=== PATIENT | male | born 1970 | race Caucasian/White ===

== ENCOUNTER → 2017-10-27 | Outpatient (CLI) | payer OTHER | LOC: FIMAGING 14:01 | PROVIDERS: ATTEND Nurse Practitioner Adult Health | DX: T82.110A Breakdown (mechanical) of cardiac electrode, initial encounter (principal) ==

== ENCOUNTER 2018-01-10 11:05 | Observation (INO) | payer OTHER ==
[2018-01-10] MEDS ORDERED: DIAZEPAM 5 MG TAB PO ONE (11:08)
[2018-01-10] MEDS ORDERED: diphenhydrAMINE 25 MG CAP PO ONE (11:08)
[2018-01-10] MEDS ORDERED: NS 1,000 ML IV ONE (11:08)
[2018-01-10] MEDS ORDERED: ceFAZolin 2 GM/DEXTROSE 100 ML IV ONE (11:08)
[2018-01-10] MEDS ORDERED: BACITRACIN IRRIGATION/NS 50,000 UNITS/1,000 ML BTL IRR ONE (11:08)
[2018-01-10] MEDS ORDERED: DEXAMETHASONE 4 MG/ML VIAL ONE (11:47)
[2018-01-10] MEDS ORDERED: PROPOFOL 200 MG/20 ML VIAL ONE (11:47)
[2018-01-10] MEDS ORDERED: fentaNYL 100 MCG/2 ML INJ ONE (11:47)
[2018-01-10] MEDS ORDERED: LIDOCAINE 2% 5 ML SDV ONE (11:47)
[2018-01-10] MEDS ORDERED: ONDANSETRON 4 MG/2 ML VIAL ONE (11:47)
[2018-01-10] MEDS ORDERED: KETOROLAC 30 MG/1 ML SDV ONE (11:47)
[2018-01-10 11:50] LABS: PLATELET COUNT 176 10^3/uL (150-400)
[2018-01-10 11:59] LABS: INR 1.08 (0.83-1.16); PROTIME(PATIENT) 14.2 SEC (12.0-15.0)
[2018-01-10] MEDS ORDERED: MIDAZOLAM 2 MG/2 ML VIAL IVP ONE (12:00)
--- NOTE | 2018-01-10 12:00 | PDANEPAE ---
ANE History of Present Illness pacer lead, gen change ANE Past Medical History - Cardiovascular History Hx Hypertension: No Hx Arrhythmias: No Hx Chest Pain: No Hx Coronary Artery / Peripheral Vascular Disease: No Hx CHF / Valvular Disease: No Hx Palpitations: No Cardiovascular History Comment: pacemaker - Pulmonary History Hx COPD: No Hx Asthma/Reactive Airway Disease: No Hx Recent Upper Respiratory Infection: No Hx Oxygen in Use at Home: No Hx Sleep Apnea: No - Neurologic History Hx Cerebrovascular Accident: No Hx Seizures: No Hx Dementia: No - Endocrine History Hx Diabetes: No Hypothyroid: No Hyperthyroid: No Obesity: no - Renal History Hx Renal Disorders: No - Liver History Hx Hepatic Disorders: No ANE Review of Systems Review of Systems: - Exercise capacity Exercise capacity: >=4 METS ANE Patient History - Allergies Allergies/Adverse Reactions: No Known Allergies Allergy (Verified 01/03/18 11:17) - Home Medications Home medications: home medication list seen and reviewed Home Medications: NK [No Known Home Meds] 01/03/18 [Last Taken Unknown] - Anes Hx Anes Hx: no prior problems - Smoking Hx Smoking Status: Never smoked ANE Labs/Vital Signs - Labs Result Diagrams: 01/10/18 11:35 01/10/18 11:35 - Vital Signs Height: 187.96 cm Weight: 97.522 kg ANE Physical Exam - Airway Mallampati Score: Class 2 Mouth exam: normal dental/mouth exam, nunez - Pulmonary Pulmonary: no respiratory distress - Cardiovascular Cardiovascular: regular rate and rhythym - ASA Status ASA Status: II ANE Anesthesia Plan Anesthesia Plan: GA w LMA
[2018-01-10] MEDS ORDERED: BUPIVACAINE 0.75% 10 ML SDV ONE ×2 (12:07→12:42)
[2018-01-10] MEDS ORDERED: IOPAMIDOL (ISOVUE-300) 100 ML BTL ONE (12:07)
[2018-01-10] MEDS ORDERED: LIDOCAINE 1% 300 MG/30 ML SDV ONE ×2 (12:07→12:42)
[2018-01-10] MEDS ORDERED: MIDAZOLAM 2 MG/2 ML VIAL ONE (12:10)
--- NOTE | 2018-01-10 12:10 | PDGENHP ---
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 V lead with noise. Plan: 1. New V lead. 2. Temporary pacemaker. 3. Keloid excision. 4. Possible submuscular pacemaker placement
--- NOTE | 2018-01-10 12:18 | CPEKG ---
Test Reason : OPEN Blood Pressure : / mmHG Vent. Rate : 061 BPM Atrial Rate : 063 BPM P-R Int : 188 ms QRS Dur : 162 ms QT Int : 486 ms P-R-T Axes : 033 -63 107 degrees QTc Int : 490 ms Atrial-sensed ventricular-paced rhythm Confirmed by Florencio Sharpe ([id number]) on 01/10/2018 12:18:00 PM Referred By: Confirmed By:Florencio Sharpe
[2018-01-10] MEDS ORDERED: fentaNYL 100 MCG/2 ML INJ IVP PRN (14:42)
[2018-01-10] MEDS ORDERED: ALBUTEROL 3 ML DEYVIAL IH PRN (14:42)
[2018-01-10] MEDS ORDERED: HYDROCODONE/APAP 5/325 TAB PO PRN (14:42)
[2018-01-10] MEDS ORDERED: LR 500 ML IV PRN (14:42)
[2018-01-10] MEDS ORDERED: NALOXONE HCL 0.4 MG/ML INJ IVP PRN (14:42)
--- NOTE | 2018-01-10 14:42 | POSTANESTH ---
Post Anesthetic Evaluation Cardiovascular Status: Normal, Stable Respiratory Status: Normal, Stable Level of Consciousness/Mental Status: Can Participate in Eval Pain Control: Adequate, Prn Tx Ordered Nausea/Vomiting Control: Adequate, Prn Tx Ordered Complications Possibly Related to Anesthesia: None Noted
--- NOTE | 2018-01-10 15:54 | EPPROC ---
Electrophysiology Procedure Note: PROCEDURE PERFORMED: 1. New V lead 2. Generator change 3. Pocket revision 4. Scar revision for keloid 5. Temporary pacemaker 6. Subclavian vein angiography 7. Fluoroscopy INDICATION: Complete AV block Congentially corrected transposition of great vessels PROCEDURE NOTE: Patient presented to the cardiac catheterization laboratory in a fasting, post absorptive state . Dr. Cuenca administered LMA. The left infraclavicular area was prepped and draped in the usual sterile fashion. Lidocaine plus bupivacaine was used for local anesthesia. Patient has no escape rhythm. Temporary pacemaker was placed via R femoral vein. SubQ suture was placed and temp wire and sheath were removed at end of case. Left subclavian venography was performed by injection of iodinated contrast into the left antecubital vein. This was done to assure patency of the vein. Using a combination of blunt and sharp dissection and electrocautery, the dissection was carried down to the prepectoral fascia. The existing pocket was opened, it was superficial and therefore leads were dissected free and dissection carried down to prepectoral fascia. All bleeding was controlled with electrocautery. The pocket was packed with gauze soaked in antibiotic solution. Fluoroscopy was utilized during the entire procedure for venous access and placement of the leads. Using a direct stick technique the left extrathoracic axillary vein was accessed with 1 stick using the modified Seldinger technique. Placement of the guidewire into the venous system was confirmed by low-pressure blood return and also by visualizing the guidewire advancing into the inferior vena cava. One #6 [place] sheath was advanced under fluoroscopic guidance over the guidewire. An active fixation ventricular lead was advanced into the pulmonary ventricle (LV) apex and screwed in place. Atrial lead has low impedance but is used for sensing only and therefore was used. Existing V lead was capped and sutured to posterior aspect of PM pocket. The peel away sheath was removed. Pacing thresholds, sensing parameters and lead impedances were measured. There was no diaphragmatic stimulation at maximum output. The lead was sutured to the prepectoral fascia with 2 nonabsorbable sutures. The pocket was again inspected for any bleeding. The leads were attached to the pacemaker securely. The pacemaker was inserted into the pocket and secured in place with a nonabsorbable suture. Fluoroscopy was performed in ROQUE and HARI planes to verify right-sided placement of the leads. Also fluoroscopy of the pacemaker pocket was performed. The pacemaker pocket was closed in 3 layers with absorbable monocryl sutures and miriam. Appropriate dressing was applied. The patient left the cardiac catheterization laboratory in stable condition. Serial Numbers: 1. Device: [facility] Assurity [id number] (NOT MRI COMPATIBLE DUE TO ABANDONED LEAD) 2. Atrial Lead: [employer]an[employer] 4503 SN [id number] implant 07/24/1992 3. Ventricular Lead: SJ Tendril [id number] 58 SN [id number] Stimulation Thresholds & Impedance Measurements: 1. Atrial Lead P 0.6 mV 200 ohm 1.25 V 0.5 ms 2. Ventricular Lead R 8.6 mV (temp pacer) 0.75 V 0.5 ms 580 ohm [place] Pacing Parameters 1. Pacing mode: DDD 2. Lower rate: 50ppm 3. Upper tracking rate: 160 ppm 4. Upper sensor rate: 160 ppm Patient Problems: Problems Problem Status Onset Heart block, congenital Acute
[2018-01-10] MEDS ORDERED: ACETAMINOPHEN 325 MG TAB PO PRN (20:45)
[2018-01-10] MEDS ORDERED: ZOLPIDEM TARTRATE 5 MG TAB PO PRN (20:45)
[2018-01-10] MEDS ORDERED: OXYCODONE/APAP 5/325 TAB PO PRN (20:45)
[2018-01-11 04:17] LABS: PLATELET COUNT 182 10^3/uL (150-400)
[2018-01-11 09:04] VITALS: BP 117/76
--- NOTE | 2018-01-11 13:37 | GDS ---
ADMISSION DIAGNOSES: 1. Third-degree atrioventricular block. 2. Fractured right ventricular lead. 3. Remote pacemaker implantation. 4. Known history of corrective transposition of the greater vessels. DISCHARGE DIAGNOSES: 1. Third-degree atrioventricular block. 2. Status post new right ventricular lead implantation. 3. Status post new generator implantation. 4. History of corrective transposition of the greater vessels. PROCEDURES PERFORMED DURING HOSPITALIZATION: 1. New ventricular lead implantation, [place]. 2. New [place] generator implantation. 3. Pacemaker pocket revision. 4. Scar revision for keloid. 5. Temporary pacer wire implantation. 6. Subclavian venogram. 7. Fluoroscopy. 8. Chest x-ray. 9. Electrocardiogram. BRIEF HISTORY: Please see History and Physical. Briefly, Mr. 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 He has been noted to be in complete heart block since the age of 21 with pacemaker implantation. He has been noted to have sign ificant noise on his ventricular lead off device programming, feeling as an insulation crack. It was decided, due to this, he would come in for new ventricular lead implantation and generator change. HOSPITAL COURSE: Patient was admitted through CVC, prepped for procedure, and taken to the Electroph ysiology Lab. There, Dr. Romo put a temporary pacer lead through the right femoral vein. Then, at th at point, opened up his pacemaker pocket , implanted a new right ventricular lead, did a generator ch gladys, and scar revision of his pacemaker pocket with keloid. No apparent complications. Temporary p acer wire was removed. Patient was transported back to the CVC and ultimately to the PCU for overnight observation. During his overnight observation on continuous cardiac monitoring, noting that he has been A-sensed, V-paced with no malignant arrhythmias or pauses noted. He denies any chest pressure or pain. He has been up and walking on the unit without difficulties. PHYSICAL EXAMINATION: GENERAL APPEARANCE: Medium built, well-groomed, male. He is alert and oriented to person, place, time, and situation. Appears to be under no acute distress. VITAL SI GNS: Currently, blood pressure 117/76, heart rate 68, respirations 16, saturating 96% on room air, t emperature 36.5 degrees Celsius. HEENT: Head is normocephalic. Lips and tongue are pink and moist with no signs of cyanosis. Conjunctivae pink. NECK: Trachea is midline. +2 carotid pulses bilater al with no auscultated bruits. No jugular vein distention. RESPIRATORY: Lungs are clear to auscult ation. No rhonchi, rales, or wheezes. No accessory muscle use. No intercostal muscle retraction no casey. CARDIAC: Regular rate, regular rhythm. S1, S2. No S3, S4, gallops, rubs, or murmurs noted. ABDOMEN: Soft, nontender. Bowel sounds x4 quadrants. No organomegaly. No palpable masses. SKIN: [place], warm, dry. No cyanosis, no clubbing, no peripheral edema. VASCULAR: +2 carotids bilateral, +2 radials bilateral, +2 dorsal pedal and posterior tibial pulses bilateral. SKIN: Pacemaker insert ion site, left anterior chest, incision intact with miriam with no redness, swelling, drainage, ecch ymosis, or hematoma. Temporary pacer wire insertion site, right groin site, suture removed intact. No redness, swelling, drainage, ecchymosis, or hematoma. LABORATORY STUDIES: Drawn today showing WBC 6.72, hemoglobin 14.2, hematocrit 39.5, platelet count 1 82. Sodium 138, potassium 4.4, chloride 105, CO2 25, BUN 16, creatinine 0.8, glucose 110, calcium 9. 0. STUDIES: Pacemaker extraction and new implantation and temporary pacer wire as mentioned above. Morning chest x-ray shows no delayed pneumothorax. Questionable atelectasis, left greater than right . No acute cardiopulmonary process. Morning electrocardiogram shows A-sensed, V-paced rhythm with no malignant arrhythmias or pauses. Device check done by [facility] pacemaker rep, reported device functioning within normal limits. DISCHARGE DISPOSITION: Patient will be discharged home in stable condition. He is under activity re strictions; not lifting more than 10 pounds for the next 2 days, not lifting more than 10 pounds with the left arm for the next 6 weeks, or raising above higher than shoulder height or back. DISCHARGE MEDICATIONS: Please see discharge medication reconciliation sheet. DISCHARGE INSTRUCTIONS: Post pacemaker implantation discharge instructions gone over with patient an d , including monitoring for signs of infection, bleeding precautions, activity restrictions, and bathing precautions. At the time of discharge, patient and verbalized understanding of all ins tructions and had no questions or concerns. Patient has a followup appointment set next week for a device and wound check, and he will follow up with Dr. Romo in approximately 2-3 weeks. Patient has been told that if any problems or concerns come up post discharge, they are to notify our office or return to the clinic. Total time spent on discharge greater than 30 minutes. /[id number]/MODL
--- NOTE | 2018-01-12 11:50 | CPEKG ---
Test Reason : OPEN Blood Pressure : / mmHG Vent. Rate : 061 BPM Atrial Rate : 062 BPM P-R Int : 175 ms QRS Dur : 191 ms QT Int : 516 ms P-R-T Axes : 073 -81 056 degrees QTc Int : 520 ms Atrial-sensed ventricular-paced complexes Confirmed by Florencio Sharpe ([id number]) on 01/12/2018 11:50:13 AM Referred By: Confirmed By:Florencio Sharpe
--- NOTE | 2018-01-12 11:52 | CPEKG ---
Test Reason : OPEN Blood Pressure : / mmHG Vent. Rate : 056 BPM Atrial Rate : 055 BPM P-R Int : 215 ms QRS Dur : 190 ms QT Int : 507 ms P-R-T Axes : 074 -78 066 degrees QTc Int : 490 ms Atrial-sensed ventricular-paced complexes Confirmed by Florencio Sharpe ([id number]) on 01/12/2018 11:51:28 AM Referred By: Confirmed By:Florencio Sharpe
== END 2018-01-11 12:06 | disposition home or self-care (01) ==
LOC: FCATH 11:05 → F2W 15:03
PROVIDERS: ADMIT Internal Medicine Cardiovascular Disease; ATTEND Internal Medicine Cardiovascular Disease
DX: T82.110A Breakdown (mechanical) of cardiac electrode, initial encounter (principal); Q24.6 Congenital heart block; L91.0 Hypertrophic scar
CPT/HCPCS: 33228; 71045; 71046; 93005; G0378; C1785; C1898; J0690; J1100; J1644; J1885; J2250; J2405; J2704; J3010; Q9967